=== PATIENT | female | born 1980 | race Two or more races ===

== ENCOUNTER 2023-10-30 21:35 | Emergency (ER) | payer BC ==
[~2023-10-30] VITALS: Ht 172.7 cm; Wt 79.5 kg
[2023-10-30 21:49] VITALS: BP 131/97; PULSE 66; RESP 14; TEMP 98.1; O2SAT 99
== END 2023-10-30 22:17 ==
LOC: ER 21:36
DX: V89.2XXA Person injured in unspecified motor-vehicle accident, traffic, initial encounter; Y93.89 Activity, other specified; Y92.89 Other specified places as the place of occurrence of the external cause; Y99.8 Other external cause status
CPT/HCPCS: 99283